=== PATIENT | female | born 1980 | race Caucasian/White ===

== ENCOUNTER 2017-05-04 07:11 | Emergency (ER) | payer SELFPAY ==
[2017-05-04 07:25] VITALS: RESP 16; O2SAT 98
[2017-05-04] MEDS ORDERED: Albuterol-Ipratrop 3 mg / 0.5 (3 ml) UD INH STA (08:25)
[2017-05-04] MEDS ORDERED: Albuterol-Ipratrop 3 mg / 0.5 (3 ml) UD ONE (08:28)
--- NOTE | 2017-05-04 08:37 | RAD ---
HISTORY: cough x 2 wks COMPARISON: 09/22/2015 TECHNIQUE: Chest PA and lateral FINDINGS: LUNGS: No active pulmonary disease. PLEURA: No significant pleural effusion identified. No pneumothorax apparent. CARDIOVASCULAR: Normal. OSSEOUS STRUCTURES: No significant abnormalities. VISUALIZED UPPER ABDOMEN: Normal. OTHER FINDINGS: None. IMPRESSION: No active disease.
--- NOTE | 2017-05-04 08:56 | C.PDOC ---
Time Seen by Provider: 05/04/17 07:24 Chief Complaint (Nursing): Cough, Cold, Congestion Past Medical History Vital Signs: Last Vital Signs Temp 98.5 F 05/04/17 07:19 Pulse 85 05/04/17 07:19 Resp 16 05/04/17 07:19 BP 129/87 05/04/17 07:19 Pulse Ox 98 05/04/17 07:19 - Medical History PMH: Gall Bladder Disease Surgical History: Cholecystectomy (SEPTEMBER 2014) - [facility] Procedures LAPAROSCOPIC CHOLECYSTECTOMY (10/15/14) Family History: States: Unknown Family Hx - Social History Hx Tobacco Use: No Hx Alcohol Use: No Hx Substance Use: No - Immunization History Hx Tetanus Toxoid Vaccination: No Hx Influenza Vaccination: No Hx Pneumococcal Vaccination: No ED Course And Treatment O2 Sat by Pulse Oximetry: 98 - Other Rad CXR X-Ray: Viewed By Me, Read By Radiologist Interpretation: Accession No. : [id number]. Patient Name / ID : SHAHNAZ DENISE / [id number]. Exam Date : 05/04/2017 07:59:20 ( Approved ). Study Comment : Sex / Age : F / 36Y. Creator : Darrin Suarez MD. Dictator : Darrin Suarez MD. Inspector Boiler : Contract Paralegal : Darrin Suarez MD. Approver2 : Report Date : 05/04/2017 08:35:56. My Comment : . HISTORY: cough x 2 wks. COMPARISON: 09/22/2015. TECHNIQUE: Chest PA and lateral. FINDINGS: LUNGS: No active pulmonary disease. PLEURA: No significant pleural effusion identified. No pneumothorax apparent. CARDIOVASCULAR: Normal. OSSEOUS STRUCTURES: No significant abnormalities. VISUALIZED UPPER ABDOMEN: Normal. OTHER FINDINGS: None. IMPRESSION: No active disease. Progress Note: Maria A was nelly. Patient will be d/c home with PMD and Pulmo follow up. Disposition - Disposition Referrals: Brenna Gardner MD [Staff Provider] - Disposition: HOME/ ROUTINE Disposition Time: 08:56 Condition: STABLE Additional Instructions: Follow up with PMD and Special Education Resource Teacher within 1-2 days. Return to ED if feel worse. Prescriptions: predniSONE [predniSONE Tab] 2 tab PO DAILY #10 tab Albuterol Sulfate [Proair Hfa] 1 puff IH Q6 PRN #1 inh PRN Reason: Cough Promethazine HCl/Codeine [Prometh-Codein 6.25-10 mg/5 ml] 5 ml PO .Q4-6H #150 ml Benzonatate [Tessalon Perles] 2 tab PO TID #60 sgl Instructions: Acute Bronchitis (ED) - Clinical Impression Clinical Impression: Bronchitis
--- NOTE | 2017-05-04 09:02 | C.PDOC ---
History Of Present Illness 36 year old female presents to ED for evaluation of cough for past 3 weeks. Notes being seen by PMD twice, was not given any prescription during the first visit, but was given prescription of Zithromax during the second visit which patient is currently taking. Patient reports feeling chest soreness and headache due to the coughing. Notes taking over the counter medication without relief. Pt feels as if mucus is stuck in her chest. Denies shortness of breath, fever, chills, or any other associated symptoms at this time. Time Seen by Provider: 05/04/17 07:24 Chief Complaint (Nursing): Cough, Cold, Congestion History Per: Patient History/Exam Limitations: no limitations Onset/Duration Of Symptoms: Days Current Symptoms Are (Timing): Still Present Location Of Pain: Headache Sick Contacts (Context): None Associated Symptoms: Cough. denies: Fever, Chills, Sore Throat, Neck Pain, Nasal Congestion Ear Symptoms: Bilateral: None Recent travel outside of the [place]: No Additional History Per: Patient Past Medical History Reviewed: Historical Data, Nursing Documentation, Vital Signs Vital Signs: Last Vital Signs Temp 98.1 F 05/04/17 09:11 Pulse 89 05/04/17 09:11 Resp 16 05/04/17 09:11 BP 119/71 05/04/17 09:11 Pulse Ox 98 05/04/17 09:14 - Medical History PMH: Gall Bladder Disease Surgical History: Cholecystectomy (SEPTEMBER 2014) - [facility] Procedures LAPAROSCOPIC CHOLECYSTECTOMY (10/15/14) Family History: States: Unknown Family Hx - Social History Hx Tobacco Use: No Hx Alcohol Use: No Hx Substance Use: No - Immunization History Hx Tetanus Toxoid Vaccination: No Hx Influenza Vaccination: No Hx Pneumococcal Vaccination: No Review Of Systems Except As Marked, All Systems Reviewed And Found Negative. Constitutional: Negative for: Fever, Chills Cardiovascular: Positive for: Chest Pain. Negative for: Palpitations, Light Headedness Respiratory: Positive for: Cough. Negative for: Shortness of Breath, Hemoptysis , Sputum, Wheezing Gastrointestinal: Negative for: Nausea, Vomiting Musculoskeletal: Negative for: Neck Pain, Back Pain Neurological: Positive for: Headache. Negative for: Weakness, Numbness, Dizziness Physical Exam - Physical Exam Appears: Non-toxic, No Acute Distress Skin: Normal Color, Warm, Dry Head: Atraumatic, Normacephalic Eye(s): bilateral: Normal Inspection Oral Mucosa: Moist Neck: Supple Cardiovascular: Rhythm Regular, No Murmur Respiratory: Normal Breath Sounds, No Rales, No Rhonchi, No Wheezing Gastrointestinal/Abdominal: Soft, No Tenderness Extremity: Normal ROM, No Pedal Edema Neurological/Psych: Oriented x3, Normal Speech ED Course And Treatment O2 Sat by Pulse Oximetry: 98 (RA) Pulse Ox Interpretation: Normal - Other Rad CXR X-Ray: Viewed By Me, Read By Radiologist Interpretation: HISTORY: cough x 2 wks. COMPARISON: 09/22/2015. TECHNIQUE: Chest PA and lateral. FINDINGS: LUNGS: No active pulmonary disease. PLEURA: No significant pleural effusion identified. No pneumothorax apparent. CARDIOVASCULAR: Normal. OSSEOUS STRUCTURES: No significant abnormalities. VISUALIZED UPPER ABDOMEN: Normal. OTHER FINDINGS: None. IMPRESSION: No active disease. Progress Note: CXR ordered and reviewed. Patient was given nebulizer treatment. On reassessment, patient is resting comfortably with no wheezing, chest pain, or retractions. Patient was advised to follow up with PMD and recreation therapist in 1 -2 days and return to ED if symptoms worsen or persist. Disposition - Disposition Referrals: Brenna Gardner MD [Staff Provider] - Disposition: HOME/ ROUTINE Disposition Time: 08:56 Condition: STABLE Additional Instructions: Follow up with PMD and Forestry Patrolman within 1-2 days. Return to ED if feel worse. Prescriptions: predniSONE [predniSONE Tab] 2 tab PO DAILY #10 tab Albuterol Sulfate [Proair Hfa] 1 puff IH Q6 PRN #1 inh PRN Reason: Cough Promethazine HCl/Codeine [Prometh-Codein 6.25-10 mg/5 ml] 5 ml PO .Q4-6H #150 ml Benzonatate [Tessalon Perles] 2 tab PO TID #60 sgl Instructions: Acute Bronchitis (ED) Forms: [employer] [facility] (Divehi) - Clinical Impression Clinical Impression: Bronchitis - PA / BENCH HAND / Resident Statement MD/DO has reviewed & agrees with the documentation as recorded. - Scribe Statement The provider has reviewed the documentation as recorded by the Scribe Mino López All medical record entries made by the Scribe were at my direction and personally dictated by me. I have reviewed the chart and agree that the record accurately reflects my personal performance of the history, physical exam, medical decision making, and the department course for this patient. I have also personally directed, reviewed, and agree with the discharge instructions and disposition.
[2017-05-04 09:13] VITALS: BP 119/71; PULSE 89; TEMP 98.1
== END 2017-05-04 09:14 | disposition home or self-care (01) ==
LOC: C.ER 07:11
DX: J40 Bronchitis, not specified as acute or chronic (principal)

== ENCOUNTER 2018-08-04 06:41 | Emergency (ER) | payer SELFPAY ==
[2018-08-04 06:57] VITALS: BP 129/85; PULSE 87; TEMP 98; O2SAT 99
--- NOTE | 2018-08-04 07:48 | C.PDOC ---
History Of Present Illness 37 y/o female presents to ED stating she has hemorrhoids for the past couple of weeks now and complains of rectal pain and constipation. Patient states her doctor gave her cream and ibuprofen but with no relief. Patient had a normal bowel movement this morning with soft stool. Otherwise she has no other complaints. Time Seen by Provider: 08/04/18 07:31 Chief Complaint (Nursing): Female Genitourinary History Per: Patient History/Exam Limitations: no limitations Onset/Duration Of Symptoms: Days Current Symptoms Are (Timing): Still Present Past Medical History Reviewed: Historical Data, Nursing Documentation, Vital Signs Vital Signs: Last Vital Signs Temp 98.0 F 08/04/18 06:56 Pulse 87 08/04/18 06:56 Resp 14 08/04/18 06:56 BP 129/85 08/04/18 06:56 Pulse Ox 99 08/04/18 06:56 - Medical History PMH: Gall Bladder Disease, Hypercholesterolemia Surgical History: Cholecystectomy (SEPTEMBER 2014) - [facility] Procedures LAPAROSCOPIC CHOLECYSTECTOMY (10/15/14) Family History: States: No Known Family Hx - Social History Hx Tobacco Use: No Hx Alcohol Use: No Hx Substance Use: No - Immunization History Hx Tetanus Toxoid Vaccination: No Hx Influenza Vaccination: No Hx Pneumococcal Vaccination: No Review Of Systems Except As Marked, All Systems Reviewed And Found Negative. Gastrointestinal: Positive for: Constipation, Rectal Pain. Negative for: Diarrhea Physical Exam - Physical Exam Additional Physical Exam Comments: Constitutional: No acute distress. Head: Normocephalic. Atraumatic. Eyes: PERRL. ENT: Moist mucous membranes. Neck: Supple. Cardiovascular: Regular rate. Radial pulse 2+ bilaterally. Chest: No tenderness. Respiratory: Clear to auscultation bilaterally. GI: Soft. Nontender. Nondistended. Rectal: (+) hemorrhoids. No active bleeding. No thrombosis. Back: No CVA tenderness. Musculoskeletal: No tenderness or swelling of extremities. Skin: No rash. Neurologic: Alert, no focal deficit. ED Course And Treatment O2 Sat by Pulse Oximetry: 99 (RA) Pulse Ox Interpretation: Normal Medical Decision Making Medical Decision Making: Advised fluids, sitz baths, topical lidocaine, surgery follow up. Disposition - Disposition Referrals: Jayro Angulo MD [Staff Provider] - Jan Arias Jr., MD [Staff Provider] - Disposition: HOME/ ROUTINE Disposition Time: 07:59 Condition: GOOD Prescriptions: Docusate [Colace] 100 mg PO BID #30 cap Lidocaine 2% [Xylocaine 2%] 1 applic TOP Q8H #1 tube Instructions: Hemorrhoids (DC) Forms: [employer] (Vietnamese) - Clinical Impression Clinical Impression: Hemorrhoids - Scribe Statement The provider has reviewed the documentation as recorded by the Lorieibe Ju[place] Uribe Provider Attestation: All medical record entries made by the Lorieibbrenda were at my direction and personally dictated by me. I have reviewed the chart and agree that the record accurately reflects my personal performance of the history, physical exam, medical decision making, and the department course for this patient. I have also personally directed, reviewed, and agree with the discharge instructions and disposition.
[2018-08-04 08:03] VITALS: RESP 18
== END 2018-08-04 08:04 | disposition home or self-care (01) ==
LOC: C.ER 06:41
DX: K64.9 Unspecified hemorrhoids (principal); E78.00 Pure hypercholesterolemia, unspecified

== ENCOUNTER 2018-08-29 09:02 | Emergency (ER) | payer SELFPAY ==
[2018-08-29 09:12] VITALS: BP 140/87; PULSE 76; RESP 18; TEMP 98.8; O2SAT 99
[2018-08-29] MEDS ORDERED: Naproxen 550 mg Tab PO STA (10:27)
[2018-08-29] MEDS ORDERED: Naproxen 550 mg Tab PO ONE (10:50)
--- NOTE | 2018-08-29 10:55 | C.PDOC ---
History Of Present Illness 38 year old female presents to the ED complaining of intermittent hemorrhoids for the past 1-2 months. Reports she was seen at this institution last month and was prescribed Lidocaine gel and Colace. However, she notes minimal relief when using these medications and reports pain has worsened. Also notes increased constipation and decreased bowel movements. Denies any nausea, vomiting, abdominal pain, GI bleeding, diarrhea, or any other symptoms. LMP: currently Time Seen by Provider: 08/29/18 09:22 Chief Complaint (Nursing): Medical Clearance History/Exam Limitations: no limitations Onset/Duration Of Symptoms: Days Current Symptoms Are (Timing): Still Present Reports Recently: Seen In ED Past Medical History Reviewed: Historical Data, Nursing Documentation, Vital Signs Vital Signs: Last Vital Signs Temp 98.8 F 08/29/18 09:08 Pulse 76 08/29/18 09:08 Resp 18 08/29/18 09:08 BP 140/87 08/29/18 09:08 Pulse Ox 99 08/29/18 09:08 Primary Care Provider: Aaron Covington - Medical History PMH: Gall Bladder Disease, Hypercholesterolemia Surgical History: Cholecystectomy (SEPTEMBER 2014) - [facility] Procedures LAPAROSCOPIC CHOLECYSTECTOMY (10/15/14) Family History: States: No Known Family Hx - Social History Hx Tobacco Use: No Hx Alcohol Use: No Hx Substance Use: No - Immunization History Hx Tetanus Toxoid Vaccination: No Hx Influenza Vaccination: No Hx Pneumococcal Vaccination: No Review Of Systems Except As Marked, All Systems Reviewed And Found Negative. Constitutional: Negative for: Fever, Chills Cardiovascular: Negative for: Chest Pain Respiratory: Negative for: Shortness of Breath Gastrointestinal: Positive for: Constipation, Other (hemorrhoids ). Negative for: Nausea, Vomiting, Abdominal Pain, Diarrhea, Hematochezia, Hematemesis Genitourinary: Negative for: Dysuria, Hematuria Physical Exam - Physical Exam Appears: Non-toxic, No Acute Distress Skin: Warm, Dry, No Rash Head: Atraumatic, Normacephalic Eye(s): bilateral: Normal Inspection, PERRL, EOMI Nose: Normal Oral Mucosa: Moist Throat: No Erythema, No Exudate Neck: Normal ROM, Supple Chest: Symmetrical, No Tenderness Cardiovascular: Rhythm Regular, No Friction Rub, No Murmur Respiratory: Normal Breath Sounds, No Rales, No Rhonchi, No Wheezing Gastrointestinal/Abdominal: Soft, No Tenderness Rectal: Hemorrhoids (moderate sized hemorrhoid at the 6 o'clock position, non- thrombosed), No Other (bleeding ) Back: Normal Inspection, No CVA Tenderness, No Vertebral Tenderness Extremity: No Pedal Edema, No Swelling Extremity: Bilateral: Atraumatic, Normal Color And Temperature, Normal ROM Neurological/Psych: Oriented x3, Normal Speech, Normal Motor Gait: Steady ED Course And Treatment O2 Sat by Pulse Oximetry: 99 (RA) Pulse Ox Interpretation: Normal Medical Decision Making Medical Decision Making: Plan - Naproxen 550mg PO On reevaluation, pt reports feeling better. Instructed to follow up with PMD and return to the ED if symptoms persist or worsen. Disposition - Disposition Referrals: Avelino Gordon MD [Staff Provider] - Disposition: HOME/ ROUTINE Disposition Time: 10:49 Condition: GOOD Additional Instructions: follow up with the medical doctor within 1-2 days, Return if worsened. Prescriptions: Hydrocortisone 2.5% (Rectal) [Anusol-Hc] 1 appl RC BID #1 tube Polyethylene Glycol 3350 [Miralax] 17 gm PO DAILY PRN #100 ml PRN Reason: Constipation Instructions: Hemorrhoids (DC) Forms: [employer] (C[place]ican) - Clinical Impression Clinical Impression: Hemorrhoids - PA / CHAMPION [employer] / Resident Statement MD/DO has reviewed & agrees with the documentation as recorded. - Scribe Statement The provider has reviewed the documentation as recorded by the Scribe Pattie Jimenez All medical record entries made by the Scribe were at my direction and personally dictated by me. I have reviewed the chart and agree that the record accurately reflects my personal performance of the history, physical exam, medical decision making, and the department course for this patient. I have also personally directed, reviewed, and agree with the discharge instructions and disposition.
== END 2018-08-29 11:06 | disposition home or self-care (01) ==
LOC: C.ER 09:02
DX: K64.9 Unspecified hemorrhoids (principal)